=== PATIENT | male | born 1955 | race Caucasian/White ===

== ENCOUNTER 2017-09-15 13:10 | Emergency (ER) | payer SELFPAY ==
[~2017-09-15] VITALS: Ht 188 cm; Wt 101.0 kg
[~2017-09-15 13:10] MED LIST: BACTDS PO; CEPH-443 PO; HYDR25TA6 PO; IBUP800T25 PO
[2017-09-15 13:17] VITALS: Ht 188 cm; Wt 101.0 kg
== END 2017-09-15 16:38 | disposition left against medical advice (07) ==
LOC: E/R 13:10
DX: Z53.21 Procedure and treatment not carried out due to patient leaving prior to being seen by health care provider (principal)